=== PATIENT | male | born 1965 | race Caucasian/White ===

== ENCOUNTER → 2019-08-27 | Outpatient (CLI) | payer OTHER | LOC: COL.RAD 10:30 | DX: M53.3 Sacrococcygeal disorders, not elsewhere classified (principal) | CPT/HCPCS: J3301 ==

== ENCOUNTER 2024-03-19 05:34 | Day surgery (SDC) | payer BC ==
[~2024-03-19] VITALS: Ht 177.8 cm; Wt 90.9 kg
[~2024-03-19 05:34] MED LIST: LR 1,000 ML IV SCH
[2024-03-19] MEDS ORDERED: MOBIC15 MG PO (06:00)
[2024-03-19] MEDS ORDERED: LIPITOR 40MG TA40 MG PO (06:00)
[2024-03-19 06:31] VITALS: BP 141/87; PULSE 73; TEMP 97.6
[2024-03-19] MEDS ORDERED: fentaNYL 50 MCG/ML 2 ML VIAL ONE (06:36)
[2024-03-19] MEDS ORDERED: Ondansetron 4 MG/2 ML VIAL ONE (06:37)
[2024-03-19] MEDS ORDERED: dexAMETHasone 10 MG/ML VIAL ONE (06:37)
[2024-03-19] MEDS ORDERED: NS 10 ML IV ONE (06:37)
[2024-03-19] MEDS ORDERED: droPERidol 2.5 MG/ML 2 ML VIAL IV PRN (07:00)
[2024-03-19] MEDS ORDERED: Meperidine 50 MG/ML 1 ML VIAL IV PRN (07:00)
[2024-03-19] MEDS ORDERED: Ondansetron 4 MG/2 ML VIAL IV PRN (07:00)
[2024-03-19] MEDS ORDERED: fentaNYL 50 MCG/ML 1 ML SYRINGE/VIAL [PACU/SDC ONLY] IV PRN (07:00)
[2024-03-19] MEDS ORDERED: hydrALAZINE 20 MG/ML 1 ML VIAL IV PRN (07:00)
[2024-03-19] MEDS ORDERED: HYDROmorphone 1 MG/1 ML SYRINGE [PACU/SDC ONLY] IV PRN ×2 (07:00)
[2024-03-19] MEDS ORDERED: Ketorolac 30 MG/ML VIAL ONE (07:11)
[2024-03-19] MEDS ORDERED: Promethazine 25 MG TAB PO PRN (08:00)
[2024-03-19] MEDS ORDERED: HYDROcodone/Acetaminophen 7.5-325 MG TAB PO PRN (08:00)
[2024-03-19] MEDS ORDERED: Morphine 4 MG/ML VIAL IV PRN (08:00)
[2024-03-19] MEDS ORDERED: oxyCODONE/Acetaminophen 5-325 MG TAB PO PRN (08:00)
[2024-03-19] MEDS ORDERED: NORCO 325 MG-7.1 TAB PO (08:00)
[2024-03-19 08:15] VITALS: BP 135/88; PULSE 65; TEMP 97.8
[2024-03-19 08:30] VITALS: BP 135/93; PULSE 70
[2024-03-19 08:31] VITALS: TEMP 97.4
[2024-03-19 08:45] VITALS: BP 144/83; PULSE 76
[2024-03-19 09:00] VITALS: BP 139/82; PULSE 79
--- NOTE | 2024-03-19 09:20 | NUR ---
0815-PT TO BAY 1 FROM PACU PER CART. REPORT RECEIVED. VS OBTAINED. CALL LIGHT WITHIN REACH. PT DENIES ANY NEEDS. 0825-PT TOLERATING SODA AND TOAST. PT DENIES ANY NEEDS. 0845-PT RATES PAIN AT 4/10. NORCO 5/325 MG GIVEN AT THIS TIME. 0905-IV DC'D AT THIS TIME. 0910-DISCHARGE EDUCATION COMPLETED WITH PT AND HIS . VERBALIZED UNDERSTANDING OF HOME AND FOLLOW UP CARE. ALL QUESTIONS ANSWERED. DISCHARGE PAPERWORK GIVEN TO PT. PT ABLE TO DRESS SELF WITH ASSISTANCE OF HIS . 0920-PT OFF UNIT PER WHEELCHAIR. PT DISCHARGED TO HOME WITH HIS PER PERSONAL VEHICLE.
== END 2024-03-19 09:20 | disposition home or self-care (01) ==
LOC: SDCO 05:34
DX: S83.232A Complex tear of medial meniscus, current injury, left knee, initial encounter (principal); M17.12 Unilateral primary osteoarthritis, left knee; X58.XXXA Exposure to other specified factors, initial encounter
CPT/HCPCS: J0665; J0690; J1100; J1885; J2405; J2704; J3010; J7120